=== PATIENT | female | born 1985 | race Caucasian/White ===

== ENCOUNTER → 2016-12-20 | Outpatient (CLI) | payer MEDICAID ==
[~2016-12-20] MED LIST: CEPH-443 PO; ONDA-43 PO
== END | disposition home or self-care (01) ==
LOC: PER 09:28
PROVIDERS: ATTEND Obstetrics & Gynecology
DX: O24.410 Gestational diabetes mellitus in pregnancy, diet controlled (principal); Z3A.30 30 weeks gestation of pregnancy

== ENCOUNTER 2017-02-23 08:34 | Outpatient (CLI) | payer MEDICAID ==
[~2017-02-23] VITALS: Ht 144.8 cm; Wt 67.9 kg
[2017-02-23 08:40] VITALS: Ht 144.8 cm; Wt 67.9 kg
[2017-02-23 08:41] VITALS: BP 125/70; PULSE 78; RESP 20
--- NOTE | 2017-02-23 12:10 | RADRPT ---
PROCEDURE: OB ultrasound for biophysical profile CLINICAL INDICATION: Presentation TECHNIQUE: Multiple sonographic images of the pelvis were obtained. Transabdominal views of the g ravid uterus are available for review. The images were reviewed on a PACS workstation. COMPARISON: None FINDINGS: breathing movement = 2/2 tone = 2/2 motion = 2/2 JACEY = 2/2 JACEY = 8.4 cm Single live intrauterine . position is cephalic. The placenta is anterior. IMPRESSION: 1. Single live intrauterine gestation. 2. Biophysical profile = 88. 3. JACEY = 8.4 cm. RPTAT: HH .Basia Rivera MD, MD Date Time Electronically viewed and signed by .Basia Rivera MD, on 02/23/2017 12:10 .G/
--- NOTE | 2017-02-23 16:57 | QN ---
Documentation Comment 31-year-old with IUP at 39 weeks and 1 day with history of 1 and unstable lie, she is here today for NST due to GDM A1. Past [employer] history significant for history of bicornuate uterus. She also had a history of C- section 1 due to breech presentation. Baby's presentation and current is variable and had unstable lie. Last ultrasound confirmed vertex presentation. Patient denies any leaking of fluid, vaginal bleeding, decreased movement, contractions or any other complaint. Patient reports that she has been compliant with taking her blood sugar. She shows me her blood sugar log. After review noted fasting blood sugar and postprandial in goal range. She checks fasting and 2 hour postprandial. Physical examination: General appearance: Alert and oriented 4 patient does not appear to be in any acute distress. Abdomen: Soft, gravid, nontender, Fundal height consistent with gestational age. NST: Category 1, there was a single episode of early deceleration with a variable deceleration 1 that resolved and did not recur during monitoring BPP: 05/31 PROCEDURE: OB ultrasound for biophysical profile CLINICAL INDICATION: Presentation TECHNIQUE: Multiple sonographic images of the pelvis were obtained. Transabdominal views of the gravid uterus are available for review. The images were reviewed on a PACS workstation. COMPARISON: None FINDINGS: breathing movement = 2/2 tone = 2/2 motion = 2/2 JACEY = 2/2 JACEY = 8.4 cm Single live intrauterine . position is cephalic. The placenta is anterior. IMPRESSION: 1. Single live intrauterine gestation. 2. Biophysical profile = /8. 3. JACEY = 8.4 cm. Assessment: IUP at 39 weeks and 1 day History of 1 GDM A1, well controlled History of 1 due to breech, desires T0 LAC Bicornuate uterus Baby's presentation currently vertex testing reassuring. Patient will be discharged home. Will return to anesthetic clinic in 2 days for repeat NST Strict labor precaution and kick count discussed She is currently scheduled for at 40 weeks if she does not deliver by then She verbalized understanding plan of care and all above instructions. MAGDY APPIAH MD February 23, 2017 16:57
== END 2017-02-23 12:50 | disposition home or self-care (01) ==
LOC: L-D 08:34 → OBT 08:34
PROVIDERS: ATTEND Obstetrics & Gynecology
DX: O24.410 Gestational diabetes mellitus in pregnancy, diet controlled (principal); O34.219 Maternal care for unspecified type scar from previous cesarean delivery; Z3A.39 39 weeks gestation of pregnancy
CPT/HCPCS: 76818; Z7500; G0463

== ENCOUNTER 2017-02-28 09:11 | Inpatient (IN) | payer MEDICAID ==
[~2017-02-28] VITALS: Ht 144.8 cm; Wt 67.4 kg
[2017-02-28] MEDS ORDERED: PRENAT PO (09:33)
[2017-02-28 09:34] VITALS: BP 137/86; PULSE 81; RESP 18; Ht 144.8 cm; Wt 67.4 kg
--- NOTE | 2017-02-28 10:10 | RADRPT ---
PROCEDURE: Limited OB ultrasound CLINICAL INDICATION: position TECHNIQUE: Sonographic evaluation to assess the position was performed. Transabdominal imag ing of the gravid uterus was performed. COMPARISON: No prior exam is available for comparison. FINDINGS: There is a single live intrauterine with a heart rate of 159 bpm. position is cephalic. The placenta is anterior. IMPRESSION: Cephalic presentation. RPTAT: HH .Basia Rivera MD, MD Date Time Electronically viewed and signed by .Basia Rivera MD, on 02/28/2017 10:10 .G/
[2017-02-28] MEDS ORDERED: METHYLERGONOVINE 0.2 MG INJ IM PRN ×2 (10:30→22:30)
[2017-02-28] MEDS ORDERED: CARBOPROST 250 MCG INJ IM PRN ×3 (10:30→22:30)
[2017-02-28] MEDS ORDERED: BUTORPHANOL 2 MG INJ IV PRN (10:30)
[2017-02-28] MEDS ORDERED: MISOPROSTOL 200 MCG TAB PR PRN ×2 (10:30→22:30)
[2017-02-28] MEDS ORDERED: OXYTOCIN 30 UNITS/LR 500 ML IV PRN ×2 (10:30→22:30)
[2017-02-28] MEDS ORDERED: OXYTOCIN 30 UNITS/LR 500 ML IV SCH ×2 (10:30)
[2017-02-28] MEDS ORDERED: IBUPROFEN 600 MG TAB PO PRN (10:30)
[2017-02-28] MEDS ORDERED: LACTATED RINGER'S 1,000 ML IV PRN (10:30)
[2017-02-28] MEDS ORDERED: LIDOCAINE 1% (MPF) 30 ML INJ INJ PRN (10:30)
[2017-02-28] MEDS: LACTATED RINGER'S 1,000 ML IV SCH ×3 (11:03→23:06)
[2017-02-28 11:20] LABS: ADD SCAN DIFF NO
[2017-02-28 11:23] LABS: BASOPHILS % 0.2 % (0.0-2.0); EOSINOPHILS % 0.1 % (0.0-7.0); HEMATOCRIT 37.1 % (37.0-47.0); HEMOGLOBIN 11.9 g/dl (12.0-16.0); LYMPHOCYTES # 1.9 10^3/ul (0.8-2.9); LYMPHOCYTES % 14.1 % (15.0-51.0); MEAN CORPUSCULAR HEMOGLOBIN 26.3 pg (29.0-33.0); MEAN CORPUSCULAR HGB CONC 32.1 g/dl (32.0-37.0); MEAN CORPUSCULAR VOLUME 81.9 fl (82.0-101.0); MEAN PLATELET VOLUME 11.2 fl (7.4-10.4); MONOCYTE # 0.5 10^3/ul (0.3-0.9); NEUTROPHIL # 10.7 10^3/ul (1.6-7.5); NEUTROPHILS % 81.2 % (39.0-77.0); PLATELET COUNT 221 10^3/UL (140-415); RED BLOOD COUNT 4.53 10^6/ul (4.20-5.40); RED CELL DISTRIBUTION WIDTH 14.6 % (11.5-14.5); WHITE BLOOD COUNT 13.1 10^3/ul (4.8-10.8)
[2017-02-28] MEDS ORDERED: MINERAL OIL LIGHT 10 ML VIAL TOP ONE (11:30)
[2017-02-28 11:48] LABS: INR 0.89; PT RATIO 0.9
[2017-02-28 11:49] LABS: PARTIAL THROMBOPLASTIN TIME 25.6 Sec (25.0-35.0)
[2017-02-28] MEDS ORDERED: CEFAZOLIN 2 GM/50 ML (PMX) 50 ML IV SCH ×2 (16:00→22:30)
[2017-02-28] MEDS ORDERED: morphine SULFATE/PF (10 MG/10 ML) INJ ONE (18:08)
[2017-02-28] MEDS ORDERED: OXYTOCIN 10 UNIT INJ ONE (18:08)
[2017-02-28] MEDS ORDERED: ONDANSETRON 4 MG INJ ONE (18:08)
[2017-02-28] MEDS ORDERED: PHENYLephrine (100 MCG/ML) 5ML SYG ONE (18:08)
[2017-02-28] MEDS ORDERED: FENTAnyl 50 MCG/ML VIAL ONE (18:50)
[2017-02-28] MEDS ORDERED: DIPHENHYDRAMINE 50 MG INJ ONE (19:13)
--- NOTE | 2017-02-28 19:22 | HP ---
Date/Time of Note Date/Time of Note DATE: 02/28/17 TIME: 19:15 OB - History Hx of Present Free Text/Dictation admitted at 39 + weeks C/S DROm [id number] AM with Hx of previous C/S X 1 Chief Complaint: SROM and labor pains Last Menstrual Period: May 11, 2016 Estimated Due Date: March 01, 2017 : 3 Para: 2 Care: Good Care Ultrasounds: Normal mid trimester US Obstetrical Complications: Gestational Diabetes, Other (Bicornuate uterus seen ) Medical Complications: Other (previous C/S X 1 ) Past Family/Social History * Past Medical, Surgical, Family and Obstetric Histories reviewed from chart. Blood Type: O+ Rubella: immune RPR/VDRL: Negative GBS Status: Unknown HBsAG: Negative OB Admission Exam Vital Signs Vital Signs Vital Signs Date Time Temp Pulse Resp B/P Pulse Ox O2 Delivery O2 Flow Rate FiO2 02/28/17 09:34 98.4 81 18 137/86 Room Air Physical Exam HEENT: WNL Heart: Rhythm Normal Lungs: Clear, Equal Abdomen: WNL Extremities: Normal Reflexes: Normal Cervical Dilatation: 1cm Effacement: 50% Station: -3 Membranes: Intact Heart Rate: 130's Accelerations: Accelerations Present Decelerations: Variable Decelerations Varibility: Moderate Contractions on Admission: 6-10 Minutes Apart Date/Time Contractions Began: 02/28/2017 0500 am Frequency of Contractions: Q 5-7 Duration: 30 SECONDS Intensity: Mild Last 72 hours Lab Results CBC & BMP 02/28/17 10:45 02/28/17 15:30 OB Assessment/Plan Other Assessment: TERM GESTATION PREVIOUS C/S x 1 SROM Other plan: after of variable deceleration of FHTs decision was made by the patient to have repeat C/S Patient had good awareness of nature and complications of C/S procedure including but but limited to infection and hemorrhage.and agreed to undergo C/S +. JESSIKA ELLIOTT MD February 28, 2017 19:22
--- NOTE | 2017-02-28 19:24 | OPR ---
Operative Report Planned Procedure Procedure date February 28, 2017 Procedure(s) repeat C/S Performed by: JESSIKA ELLIOTT MD Assisting provider: STAN ROBERSON MD Anesthesiologist: SONIA CARPIO MD Pre-procedure diagnosis term gestation previous C/S labor pains Anesthesia Type: spinal Procedure Description Under satisfactory anaesthesia a Pfannenstiel incision was made two fingerbreadth above and parallel to the symphysis of pubis around the previous scar and previous scar was removed Incision was extended laterally to the border of the Recti muscles on either sides. Incision was carried down with sharp and blunt dissection until fascia was reached. Anterior Recti muscle fascia was incised in mid portion and incision extended laterally to the border of skin incision. Fascia was mobilized from muscle superiorly and Recti muscles were from midline using sharp and blunt dissection. Peritoneum was visualized; Avoiding bowel and bladder it was incised . Incision was extended superiorly and inferiorly. Bladder blade was placed. Posterior peritoneum covering the lower segment of the uterus and lower segment of the uterus were incised.Low transverse uterine incision was made on lower segment of the uterus. Incision extended laterally to the border of Round Lig. on either sides and baby was delivered from OT. position . Amniotic fluid appeared clear. Cord blood was obtained and cord had 3 vessels . Placenta was delivered spontaneously and appeared intact and complete. Intrauterine cavity was rubbed with a laparotomy sponge. Uterine incision was closed in 2 layers using running stitches of No1 Monocryl. Hemostasis appeared secure. Ovaries and Fallopian tubes were within normal limits. Announcing needle, lap sponge and instrument count to be correct abdomen was closed in layers as follows: Peritoneum and Recti muscles with running stitches of 20 Vicryl. Fascia with running stitch of No 1 PDS. Subcutaneous tissue with running stitches of 20 Chromic and skin was closed using estuardo. Patient tolerated the procedure well and was transferred to [facility] in good condition. Post-Procedure Post-procedure diagnosis S/P C/S bicornuate uterus Findings: Live Baby Bicornuate uterus Specimen removed: No Complications: None Pt Condition post procedure: stable Disposition: PACU Physician Certification I, the undersigned physician, hereby certify that I have discussed the procedure described in this consent form with this patient (or the patient's legal route sales representative), including: * The risk and benefits of the procedure; * Any adverse reactions that may reasonably be expected to occur; * Any alternative efficacious methods of treatment which may be medically viable ; * The potential problems that may occur during recuperation; * Potential for blood transfusion and associated risks/benefits; and * Any research or economic interest I may have regarding this treatment. I further certify that the patient/legally responsible person was encouraged to ask question and that all questions were answered. JESSIKA ELLIOTT MD February 28, 2017 19:24
[2017-02-28] MEDS ORDERED: DIPHENHYDRAMINE 50 MG INJ IV PRN (20:30)
[2017-02-28] MEDS ORDERED: morphine 2 MG INJ IV PRN (20:30)
[2017-02-28] MEDS ORDERED: ONDANSETRON 4 MG INJ IV PRN (20:30)
[2017-02-28] MEDS ORDERED: KETOROLAC 30 MG INJ IV PRN (20:30)
[2017-02-28] MEDS ORDERED: NALOXONE (0.4 MG/ML) INJ IV PRN (20:30)
[2017-02-28 22:15] VITALS: BP 130/75; PULSE 75; RESP 18
[2017-02-28] MEDS ORDERED: ACETAMINOPHEN/CODEINE #3 TAB PO PRN (22:30)
[2017-02-28] MEDS ORDERED: LANOLIN 7 GM TUBE TOP PRN (22:30)
[2017-02-28] MEDS ORDERED: NA PHOSPHATE/BIPHOS 133 ML ENEMA PR PRN (22:30)
[2017-02-28 22:45] VITALS: BP 124/66; PULSE 75; RESP 18
[2017-02-28] MEDS ORDERED: DEXTROSE 50% 50 ML SYRINGE IV PRN ×2 (23:00)
[2017-02-28] MEDS ORDERED: GLUCOSE GEL 15 GRAM TUBE BUCCAL PRN (23:00)
[2017-02-28] MEDS ORDERED: GLUCOSE GEL 15 GRAM TUBE PO PRN ×2 (23:00)
[2017-02-28] MEDS ORDERED: GLUCAGON 1 MG INJ IM PRN (23:00)
[2017-03-01] VITALS: BP 121/70; PULSE 70; RESP 18
[2017-03-01] MEDS: CLINDAMYCIN 300 MG CAP PO SCH ×4 (00:21→18:13)
[2017-03-01] MEDS: CEFAZOLIN 2 GM/50 ML (PMX) 50 ML IVPB SCH ×3 (02:06→18:11)
[2017-03-01 04:03] VITALS: BP 114/63; PULSE 81; RESP 18
[2017-03-01] MEDS: LACTATED RINGER'S 1,000 ML IV SCH ×3 (06:48→15:07)
[2017-03-01] MEDS: ACCU-CHEK XX SCH ×4 (07:29→20:05)
[2017-03-01] MEDS: metFORMIN (XR) 500 MG TAB PO SCH ×2 (07:46→18:05)
[2017-03-01 08:00] VITALS: BP 116/62; PULSE 88; RESP 16
[2017-03-01 08:28] LABS: ADD SCAN DIFF NO
[2017-03-01 08:53] LABS: BASOPHILS % 0.3 % (0.0-2.0); EOSINOPHILS % 0.2 % (0.0-7.0); HEMATOCRIT 33.2 % (37.0-47.0); HEMOGLOBIN 10.3 g/dl (12.0-16.0); LYMPHOCYTES # 1.4 10^3/ul (0.8-2.9); LYMPHOCYTES % 12.1 % (15.0-51.0); MEAN CORPUSCULAR HEMOGLOBIN 25.9 pg (29.0-33.0); MEAN CORPUSCULAR VOLUME 83.6 fl (82.0-101.0); MEAN PLATELET VOLUME 11.4 fl (7.4-10.4); MONOCYTE # 0.6 10^3/ul (0.3-0.9); MONOCYTES % 4.7 % (0.0-11.0); NEUTROPHIL # 9.8 10^3/ul (1.6-7.5); NEUTROPHILS % 82.3 % (39.0-77.0); PLATELET COUNT 186 10^3/UL (140-415); RED BLOOD COUNT 3.97 10^6/ul (4.20-5.40); RED CELL DISTRIBUTION WIDTH 14.6 % (11.5-14.5); WHITE BLOOD COUNT 11.9 10^3/ul (4.8-10.8)
[2017-03-01] MEDS: SENNA/DOCUSATE NA (8.6MG/50MG) TAB PO SCH ×2 (09:05→20:31)
[2017-03-01] MEDS ORDERED: BISACODYL 10 MG SUPP PR ONE (10:30)
[2017-03-01 12:00] VITALS: BP 110/64; PULSE 67; RESP 16
--- NOTE | 2017-03-01 14:59 | PN ---
Date/Time of Note Date/Time of Note DATE: 03/01/17 TIME: 14:58 Assessment/Plan VTE Prophylaxis VTE Prophylaxis Intervention: ambulation Lines/Catheters IV Catheter Type (from Nrsg): Peripheral IV Assessment/Plan Assessment/Plan POD # 1 S/P C/S Will advance diet and ambulate Subjective 24 Hr Interval Summary No BM passing flatus Constitutional: BM, ambulates, flatus, improved, no complaints, urine output Pain Control: well controlled Exam/Review of Systems Vital Signs Vitals Vital Signs Date Time Temp Pulse Resp B/P Pulse Ox O2 Delivery O2 Flow Rate FiO2 03/01/17 12:00 97 21 03/01/17 12:00 98.4 67 16 110/64 Room Air Intake and Output 02/28/17 02/28/17 03/01/17 15:00 23:00 07:00 Intake Total 325 ml 1075 ml 1025 ml Output Total 350 ml 1200 ml 900 ml Balance -25 ml -125 ml 125 ml Exam Free Text/Dictation Abdomen: soft BS + incision : covered Constitutional: alert, oriented, well developed Psych: nl mood/affect, no complaints Head: atraumatic, normocephalic Eyes: EOMI, nl conjunctiva, nl lids, nl sclera ENMT: mucosa pink and moist, nl external ears & nose, nl lips & teeth, nl nasal mucosa & septum Neck: non-tender, supple Respiratory: clear to auscultation, normal air movement Cardiovascular: nl pulses, regular rate and rhythm Gastrointestinal: nl liver, spleen, non-tender, soft Musculoskeletal: nl extremities to inspection, nl gait and stance Extremities: normal pulses Neurological: RELIGIOUS LEADER II-XII intact, nl mental status, nl speech, nl strength Skin: nl turgor, rash or lesions Lymph: nl lymph nodes Results Result Diagram: 03/01/17 0727 02/28/17 1530 JESSIKA ELLIOTT MD March 01, 2017 14:59
[2017-03-01 16:00] VITALS: BP 113/63; PULSE 78; RESP 16
[2017-03-01 20:30] VITALS: BP 129/64; PULSE 90; RESP 18
[2017-03-01] MEDS: OXYCODONE/ACETAMINOPHEN (5/325) TAB PO PRN (20:32)
[2017-03-02] MEDS: IBUPROFEN 800 MG TAB PO SCH ×4 (00:40→21:16)
[2017-03-02] MEDS: CLINDAMYCIN 300 MG CAP PO SCH ×4 (00:41→17:13)
[2017-03-02 04:00] VITALS: BP 115/66; PULSE 71; RESP 18
[2017-03-02] MEDS: LACTATED RINGER'S 1,000 ML IV SCH (06:23)
[2017-03-02] MEDS: metFORMIN (XR) 500 MG TAB PO SCH ×2 (07:28→16:44)
[2017-03-02] MEDS: ACCU-CHEK XX SCH ×4 (07:30→20:05)
[2017-03-02 07:40] VITALS: BP 115/73; PULSE 61; RESP 16
[2017-03-02 08:02] LABS: ADD SCAN DIFF NO
[2017-03-02 08:05] LABS: BASOPHILS % 0.2 % (0.0-2.0); EOSINOPHILS % 0.3 % (0.0-7.0); HEMATOCRIT 30.1 % (37.0-47.0); HEMOGLOBIN 9.3 g/dl (12.0-16.0); LYMPHOCYTES # 1.7 10^3/ul (0.8-2.9); LYMPHOCYTES % 14.5 % (15.0-51.0); MEAN CORPUSCULAR HEMOGLOBIN 26.2 pg (29.0-33.0); MEAN CORPUSCULAR HGB CONC 30.9 g/dl (32.0-37.0); MEAN CORPUSCULAR VOLUME 84.8 fl (82.0-101.0); MEAN PLATELET VOLUME 11.2 fl (7.4-10.4); MONOCYTE # 0.7 10^3/ul (0.3-0.9); MONOCYTES % 5.8 % (0.0-11.0); NEUTROPHIL # 9.3 10^3/ul (1.6-7.5); NEUTROPHILS % 78.9 % (39.0-77.0); PLATELET COUNT 182 10^3/UL (140-415); RED BLOOD COUNT 3.55 10^6/ul (4.20-5.40); WHITE BLOOD COUNT 11.8 10^3/ul (4.8-10.8)
[2017-03-02] MEDS: SENNA/DOCUSATE NA (8.6MG/50MG) TAB PO SCH ×2 (09:05→21:16)
[2017-03-02] MEDS: OXYCODONE/ACETAMINOPHEN (5/325) TAB PO PRN ×2 (14:50→22:19)
[2017-03-02 16:00] VITALS: BP 127/80; PULSE 70; RESP 16
--- NOTE | 2017-03-02 17:52 | DS ---
Date/Time of Note Date/Time of Note home next day DATE: 03/02/17 TIME: 17:49 Obstetrical Discharge Record Final Diagnosis Final Diagnosis: Term delivered Other Final Diagnosis S/P C/S Section Section: Repeat Complications Gestational Diabetes Condition on Discharge Physical Assessment Last Vitals: see nurses notes Voiding: Yes Bowel Movement: Yes Breast: Soft, non-tender, Filling Fundus: Firm Abdomen and Incision: soft BS+ INCISION : HEALING Episiotomy: NA Calf Tenderness: No Patient Condition: Good JESSIKA ELLIOTT MD March 02, 2017 17:52
--- NOTE | 2017-03-02 17:54 | DS ---
Date/Time of Note Date/Time of Note DATE: 03/02/17 TIME: 17:52 Discharge Summary Admission/Discharge Info Admit Date/Time February 28, 2017 at 10:49 Discharge Date/Time 03/03/2017 Final Diagnosis S/P C/S Patient Condition: Good Procedures repeat C/S Hx of Present Illness 31 y/o female had repeat C/S Hospital Course Uncomplicated Home Meds Reported Medications Multivit/Min/Fol Ac/Iron/Pren* ( S*) 1 Tab Tab, 1 TAB PO DAILY, TAB 02/28/17 Discontinued Scripts Cephalexin* (Keflex*) 500 Mg Capsule, 500 MG PO QID for 7 Days, CAP Prov:MICHELLE LIMON PA-C 07/12/16 Ondansetron Hcl* (Zofran*) 4 Mg Tab, 4 MG PO Q6H Y for NAUSEA AND OR VOMITING, # 20 TAB Prov:EDGARDO FENTON 05/03/15 Follow-up Plan 3-4 days in clinic for staple removal Pending Labs Laboratory Tests Test 03/01/17 20:13 03/02/17 07:15 03/02/17 08:39 03/02/17 11:36 Bedside Glucose 117mg/dL (70-220) 76mg/dL (70-220) 112mg/dL (70-220) White Blood Count 11.810^3/ul (4.8-10.8) Red Blood Count 3.5510^6/ul (4.20-5.40) Hemoglobin 9.3g/dl (12.0-16.0) Hematocrit 30.1% (37.0-47.0) Mean Corpuscular Volume 84.8fl (82.0-101.0) Mean Corpuscular Hemoglobin 26.2pg (29.0-33.0) Mean Corpuscular Hemoglobin Concent 30.9g/dl (32.0-37.0) Red Cell Distribution Width 15.0% (11.5-14.5) Platelet Count 47249^3/UL (140-415) Mean Platelet Volume 11.2fl (7.4-10.4) Neutrophils % 78.9% (39.0-77.0) Lymphocytes % 14.5% (15.0-51.0) Monocytes % 5.8% (0.0-11.0) Eosinophils % 0.3% (0.0-7.0) Basophils % 0.2% (0.0-2.0) Nucleated Red Blood Cells % 0.0/100WBC (0.0-0.0) Neutrophils # 9.310^3/ul (1.6-7.5) Lymphocytes # 1.710^3/ul (0.8-2.9) Monocytes # 0.710^3/ul (0.3-0.9) Eosinophils # 0.010^3/ul (0.0-0.5) Basophils # 0.010^3/ul (0.0-0.1) Nucleated Red Blood Cells # 0.010^3/ul (0.0-0.0) Test 03/02/17 15:58 Bedside Glucose 105mg/dL (70-220) JESSIKA ELLIOTT MD March 02, 2017 17:54
--- NOTE | 2017-03-02 17:56 | PD.PPDC ---
TIME RECORDER Discharge Instruction Provider Information Physician Information 31 y/o female had repeat C/S Diagnosis Final Diagnosis: S/P C/S Condition Patient Condition: Good Diet Diet: Special Diet Special Diet: 1999 ruddy ADA Activity/Restrictions Activity: February Shower Restrictions: No Exercising No Lifting Nothing in the Vagina Return to Work or School: May 02, 2017 Wound/Drain Care Instructions Wound/Drain Care Instructions: Keep clean and dry Follow-up Follow-up with Physician: 3, 4, Day/Days (in clinic for staple removal ) Return to clinic for CREDIT ADMINISTRATION OFFICER Instructions: Fever greater than 101 Chills OB Instructions: Breast Tenderness Depression Surgical Instructions: Incisional Drainage Incisional Redness JESSIKA ELLIOTT MD March 02, 2017 17:56
[2017-03-02] MEDS ORDERED: Oxycodone/Acetamin (5/325) PO (17:58)
[2017-03-02] MEDS ORDERED: METF500T3 PO (17:58)
[2017-03-02] MEDS ORDERED: IBUP800T25 PO (17:58)
[2017-03-02 19:50] VITALS: BP 135/77; PULSE 80; RESP 17
[2017-03-03] MEDS: CLINDAMYCIN 300 MG CAP PO SCH ×3 (00:06→12:00)
[2017-03-03 04:00] VITALS: BP 116/56; PULSE 68; RESP 18
[2017-03-03] MEDS: IBUPROFEN 800 MG TAB PO SCH (05:32)
[2017-03-03] MEDS: ACCU-CHEK XX SCH ×2 (07:30→10:05)
[2017-03-03 07:50] VITALS: BP 118/56; PULSE 65; RESP 20
[2017-03-03] MEDS: metFORMIN (XR) 500 MG TAB PO SCH (08:05)
[2017-03-03] MEDS: SENNA/DOCUSATE NA (8.6MG/50MG) TAB PO SCH (08:44)
[2017-03-03] MEDS ORDERED: DIPHTH/TET/ACEL PERTUSS (ADULT) 0.5 ML VIAL IM* ONE (09:00)
[2017-03-03] MEDS ORDERED: MEASLES,MUMPS,RUBELLA VACCINE INJ SC* ONE (09:00)
[2017-03-03] MEDS: OXYCODONE/ACETAMINOPHEN (5/325) TAB PO PRN (09:07)
== END 2017-03-03 14:00 | disposition home or self-care (01) | DRG 766 ==
LOC: OBT 09:11 → L-D 09:12 → OBT 10:43 → L-D 10:49 → PP1 22:12
PROVIDERS: ADMIT Obstetrics & Gynecology; ATTEND Obstetrics & Gynecology
PROC: 10D00Z1 Extraction of Products of Conception, Low, Open Approach (ICD-10-PCS; principal; 2017-02-28 18:00)
DX: O34.211 Maternal care for low transverse scar from previous cesarean delivery (principal); O24.420 Gestational diabetes mellitus in childbirth, diet controlled; O34.03 Maternal care for unspecified congenital malformation of uterus, third trimester; Q51.3 Bicornate uterus; O76 Abnormality in fetal heart rate and rhythm complicating labor and delivery; Z3A.39 39 weeks gestation of pregnancy; Z37.0 Single live birth
CPT/HCPCS: 76815; 82947; 82962; 84112; 85025; 85610; 85730; 86592; 86885; 86900; 86901; 90715; 94760; 99464; G0463; J0690; J1200; J1885; J2274; J2370; J2405; J2590; J3010; J7120

== ENCOUNTER 2017-06-07 15:33 | Emergency (ER) | payer MEDICAID ==
[~2017-06-07] VITALS: Ht 152.4 cm; Wt 64.0 kg
[~2017-06-07 15:33] MED LIST changes: -CEPH-443 PO; +IBUP800T25 PO; +METF500T3 PO; -ONDA-43 PO; +Oxycodone/Acetamin (5/325) PO; +PRENAT PO
[2017-06-07 15:45] VITALS: Ht 152.4 cm; Wt 64.0 kg
[2017-06-07] MEDS ORDERED: SOD CHLORIDE 0.9% 1,000 ML IV STA (16:14)
[2017-06-07] MEDS ORDERED: KETOROLAC 30 MG INJ IV STA (16:14)
[2017-06-07] MEDS ORDERED: METOCLOPRAMIDE 10 MG INJ IV ONE (16:30)
[2017-06-07 16:49] LABS: BASOPHILS % 0.1 % (0.0-2.0); EOSINOPHILS % 0.2 % (0.0-7.0); HEMATOCRIT 40.2 % (37.0-47.0); HEMOGLOBIN 13.2 g/dl (12.0-16.0); LYMPHOCYTES # 1.4 10^3/ul (0.8-2.9); LYMPHOCYTES % 10.7 % (15.0-51.0); MEAN CORPUSCULAR HEMOGLOBIN 27.3 pg (29.0-33.0); MEAN CORPUSCULAR HGB CONC 32.8 g/dl (32.0-37.0); MEAN CORPUSCULAR VOLUME 83.1 fl (82.0-101.0); MEAN PLATELET VOLUME 9.9 fl (7.4-10.4); MONOCYTE # 0.7 10^3/ul (0.3-0.9); MONOCYTES % 5.2 % (0.0-11.0); NEUTROPHILS % 83.5 % (39.0-77.0); PLATELET COUNT 247 10^3/UL (140-415); RED BLOOD COUNT 4.84 10^6/ul (4.20-5.40); RED CELL DISTRIBUTION WIDTH 14.7 % (11.5-14.5); WHITE BLOOD COUNT 13.5 10^3/ul (4.8-10.8)
--- NOTE | 2017-06-07 17:09 | RADRPT ---
PROCEDURE: Right upper quadrant ultrasound CLINICAL INDICATION: Abdominal pain TECHNIQUE: Multiple real-time images were acquired of the patient's abdomen and right retroperiton eum utilizing a high resolution transducer. COMPARISON: None FINDINGS: The liver is normal in echogenicity and measures 13.03 cm. No focal hepatic masses are seen. The g allbladder is physiologically distended. There is no evidence of gallstones, gallbladder wall thick ening, or pericholecystic fluid. The intra and extrahepatic bile ducts are normal in caliber. The common bile duct measures 2.32 mm. Midline images demonstrate the pancreas to be normal in echogenicity without obvious inflammatory ch keagan. Survey views of the right kidney demonstrate no evidence of hydronephrosis or renal calculi. The ri ght kidney measures 9.79 cm. IMPRESSION: Unremarkable right upper quadrant ultrasound. No evidence of cholelithiasis or acute cholecystitis. . RPTAT: HH .Leonel Marcos MD, Date Time Electronically viewed and signed by .Leonel Marcos MD, on 06/07/2017 17:09 .W/
[2017-06-07 17:19] LABS: ALBUMIN 4.7 g/dl (3.3-4.9); ALBUMIN/GLOBULIN RATIO 1.38; BILIRUBIN,INDIRECT 0.4 mg/dl (0-1.1); BILIRUBIN,TOTAL 0.4 mg/dl (0.2-1.3); CALCIUM 9.2 mg/dl (8.4-10.2); CREATININE 0.56 mg/dl (0.44-1.00); POTASSIUM 3.3 mmol/L (3.5-5.1); TOTAL PROTEIN 8.1 g/dl (6.1-8.1)
[2017-06-07 17:19] LABS: ADD UMIC YES; UR ASCORBIC ACID NEGATIVE (NEGATIVE); UR BACTERIA FEW /HPF (NONE SEEN); UR BILIRUBIN (Dip) NEGATIVE (NEGATIVE); UR BLOOD (Dip) 3+ mg/dL (NEGATIVE); UR CLARITY CLOUDY (CLEAR); UR COLOR YELLOW (YELLOW); UR GLUCOSE (Dip) NEGATIVE (NEGATIVE); UR KETONES (Dip) NEGATIVE (NEGATIVE); UR LEUKOCYTE ESTERASE (Dip) 3+ Leu/ul (NEGATIVE); UR NITRITE (Dip) NEGATIVE (NEGATIVE); UR RBC 33 /HPF (0-5); UR RENAL EPITHELIAL CELL FEW /HPF (NONE SEEN); UR SPECIFIC GRAVITY (Dip) 1.005 (1.003-1.030); UR SQUAMOUS EPITHELIAL CELL MODERATE /HPF (FEW); UR TOTAL PROTEIN (Dip) NEGATIVE (NEGATIVE); UR UROBILINOGEN (Dip) NEGATIVE (NEGATIVE); UR WBC CLUMPS MANY /HPF (NONE SEEN)
[2017-06-07] MEDS ORDERED: CEPH-443 PO (17:50)
[2017-06-07] MEDS ORDERED: IBUP-1542 PO (17:50)
--- NOTE | 2017-06-07 17:58 | ERD ---
ER Documentation Chief Complaint Date/Time DATE: 06/07/17 TIME: 17:51 Chief Complaint pt bib self with c/o abd pain and nausea for a few days 3 months post partu HPI Patient is a 31-year-old female with a past medical history of an appendectomy who presents to the emergency department with concerns of diffuse abdominal pain nausea 3 days. Patient describes the pain to be episodic in nature. Patient describes the pain to be crampy. Patient states she started having diarrhea today. Patient reports 4 episodes of nonbloody nonmucous stools today. Patient states she feels nauseous however she denies any vomiting. Patient reports tactile fevers. Patient did not take her temperature with a thermometer. Patient denies taking any antipyretics. Patient denies any flank pain, dysuria, frequency, urgency or hematuria. Patient denies any chest pain, shortness breath, left upper extremity pain, diaphoresis or LOC. Patient did recently travel to [facility]. No sick contacts. No recent travel. ROS All systems reviewed and are negative except as per history of present illness. Medications Home Meds Active Scripts Nitrofurantoin Monohyd Macrocr* (Macrobid*) 100 Mg Capsr, 100 MG PO HS for 5 Days, CAP Prov:INÉS TIJERINA 06/08/17 Loperamide Hcl* (Imodium*) 2 Mg Capsule, 2 MG PO BID Y for DIARRHEA, #10 CAP MAX 16 mg/day Prov:INÉS TIJERINA 06/08/17 Metoclopramide* (Reglan*) 10 Mg Tablet, 10 MG PO Q6 Y for NAUSEA AND/OR VOMITING , #10 TAB Prov:LILIA JANG PA-C 06/07/17 Cephalexin* (Keflex*) 500 Mg Capsule, 500 MG PO TID for 7 Days, CAP Prov:LILIA JANG PA-C 06/07/17 Ibuprofen* (Motrin*) 600 Mg Tab, 600 MG PO Q6, #30 TAB Prov:LILIA JANG PA-C 06/07/17 [Oxycodone/Acetamin (5/325)] 1 TAB TAB No Conflict Check, 2 TAB PO Q4H Y for PAIN LEVEL 6-10, #30 0 Refills Prov:JESSIKA ELLIOTT MD 03/02/17 Ibuprofen* (Ibuprofen*) 800 Mg Tablet, 800 MG PO Q8, #30 TAB 0 Refills Prov:JESSIKA ELLIOTT MD 03/02/17 Metformin* (Glucophage* XR) 500 Mg Tab.sr.24h, 500 MG PO BID WITH MEALS, #120 6 Refills Prov:JESSIKA ELLIOTT MD 03/02/17 Reported Medications Multivit/Min/Fol Ac/Iron/Pren* ( S*) 1 Tab Tab, 1 TAB PO DAILY, TAB 02/28/17 Allergies Allergies: Coded Allergies: No Known Drug Allergy (Verified Allergy, Unknown, 06/08/17) PMhx/Soc History of Surgery: Yes (appendectomy) Anesthesia Reaction: No Hx Neurological Disorder: No Hx Respiratory Disorders: No Hx Cardiac Disorders: No Hx Psychiatric Problems: No Hx Miscellaneous Medical Probl: No Hx Alcohol Use: No Hx Substance Use: No Hx Tobacco Use: No Smoking Status: Never smoker Physical Exam Vitals Vital Signs Date Time Temp Pulse Resp B/P Pulse Ox O2 Delivery O2 Flow Rate FiO2 06/07/17 15:45 100.4 122 18 124/74 99 Physical Exam GENERAL: Well-developed, well-nourished female. Appears in no acute distress. HEAD: Normocephalic, atraumatic. EYES: Pupils are equally reactive bilaterally. EOMs grossly intact. No conjunctival erythema. ENT: Moist mucous membranes. No uvula deviation. No kissing tonsils. NECK: Supple. No meningismus. Normal range of motion of the neck. LUNG: Clear to auscultation bilaterally. No rhonchi, wheezing, rales or coarse breath sounds. HEART: Regular rate and rhythm. No murmurs, rubs or gallops. ABDOMEN: Soft and nondistended. Minimally tender to palpation in all 4 quadrants. Positive bowel sounds in all four quadrants. No rebound tenderness, no guarding. (-) McBurney's point tenderness. No CVA tenderness bilaterally. EXTREMITIES: Equal pulses bilaterally. No peripheral clubbing, cyanosis or edema. No unilateral leg swelling. NEUROLOGIC: Alert and oriented. Moving all four extremities without any difficulty. Normal speech. Steady gait. SKIN: Normal color. Warm and dry. No rashes or lesions. Result Diagram: 06/07/17 1628 06/07/17 1628 Results 24 hrs Laboratory Tests Test 06/07/17 16:18 06/07/17 16:28 Urine Color YELLOW Urine Clarity CLOUDY Urine pH 5.0 Urine Specific [place] 1.005 Urine Ketones NEGATIVEmg/dL Urine Nitrite NEGATIVEmg/dL Urine Bilirubin NEGATIVEmg/dL Urine Urobilinogen NEGATIVEmg/dL Urine Leukocyte Esterase 3+Kyler/ul Urine Microscopic RBC 33/HPF Urine Microscopic WBC 85/HPF Urine Squamous Epithelial Cells MODERATE/HPF Urine Renal Epithelial Cells FEW/HPF Urine Bacteria FEW/HPF Urine Hemoglobin 3+mg/dL Urine Glucose NEGATIVEmg/dL Urine Total Protein NEGATIVEmg/dl White Blood Count 13.510^3/ul Red Blood Count 4.8410^6/ul Hemoglobin 13.2g/dl Hematocrit 40.2% Mean Corpuscular Volume 83.1fl Mean Corpuscular Hemoglobin 27.3pg Mean Corpuscular Hemoglobin Concent 32.8g/dl Red Cell Distribution Width 14.7% Platelet Count 85780^3/UL Mean Platelet Volume 9.9fl Neutrophils % 83.5% Lymphocytes % 10.7% Monocytes % 5.2% Eosinophils % 0.2% Basophils % 0.1% Nucleated Red Blood Cells % 0.0/100WBC Neutrophils # (Manual) 11.210^3/ul Lymphocytes # 1.410^3/ul Monocytes # 0.710^3/ul Eosinophils # 0.010^3/ul Basophils # 0.010^3/ul Nucleated Red Blood Cells # 0.010^3/ul Sodium Level 138mmol/L Potassium Level 3.3mmol/L Chloride Level 103mmol/L Carbon Dioxide Level 24mmol/L Anion Gap 14 Blood Urea Nitrogen 12mg/dl Creatinine 0.56mg/dl Glucose Level 92mg/dl Calcium Level 9.2mg/dl Total Bilirubin 0.4mg/dl Direct Bilirubin 0.00mg/dl Indirect Bilirubin 0.4mg/dl Aspartate Amino Transf (AST/SGOT) 33IU/L Alanine Aminotransferase (ALT/SGPT) 57IU/L Alkaline Phosphatase 121IU/L Total Protein 8.1g/dl Albumin 4.7g/dl Globulin 3.40g/dl Albumin/Globulin Ratio 1.38 Lipase 107U/L Current Medications Medications (Trade) Dose Ordered Sig/Josephine Route PRN Reason Start Time Stop Time Status Last Admin Dose Admin Sodium Chloride (NS) 1,000 ml @ 1,000 mls/hr Q1H STAT IV 06/07/17 16:14 06/07/17 17:13 DC 06/07/17 16:59 Ketorolac Tromethamine (Toradol) 30 mg ONCE STAT IV 06/07/17 16:14 06/07/17 16:17 DC 06/07/17 17:06 Metoclopramide HCl 10 mg 10 mg ONCE ONCE IV 06/07/17 16:30 06/07/17 16:31 DC 06/07/17 17:04 Ceftriaxone Sodium (Rocephin) 50 ml @ 100 mls/hr ONCE ONCE IVPB 06/07/17 18:00 06/07/17 18:29 DC 06/07/17 17:56 Procedures/MDM ED COURSE: The patient was stable throughout ED course. I kept the patient and/or family informed of laboratory and diagnostic imaging results throughout the ED course. DIAGNOSTIC IMAGING: Read by radiologist. Patient: ENRIQUE RUBIN : 1985 Age: 31 Sex: F MR #: [id number] DOS: 06/07/17 0000 Ordering MD: LILIA JANG PA-C Location: [facility] Room/Bed: PROCEDURE: Right upper quadrant ultrasound CLINICAL INDICATION: Abdominal pain TECHNIQUE: Multiple real-time images were acquired of the patient's abdomen and right retroperitoneum utilizing a high resolution transducer. COMPARISON: None FINDINGS: The liver is normal in echogenicity and measures 13.03 cm. No focal hepatic masses are seen. The gallbladder is physiologically distended. There is no evidence of gallstones, gallbladder wall thickening, or pericholecystic fluid. The intra and extrahepatic bile ducts are normal in caliber. The common bile duct measures 2.32 mm. Midline images demonstrate the pancreas to be normal in echogenicity without obvious inflammatory change. Survey views of the right kidney demonstrate no evidence of hydronephrosis or renal calculi. The right kidney measures 9.79 cm. IMPRESSION: Unremarkable right upper quadrant ultrasound. No evidence of cholelithiasis or acute cholecystitis.. RPTAT: HH .Leonel Marcos MD, MD Date Time Electronically viewed and signed by .Leonel Marcos MD, MD on 06/07/2017 17:09 .W/ CC: LILIA JANG PA-C PROCEDURES: None. MEDICATIONS GIVEN: IV fluids, Toradol, Zofran, Rocephin 1 g Patient tolerated medication well with no adverse reactions. Patient reported improvement in pain. MEDICAL DECISION MAKING: This is a 31-year-old female with past medical history of an appendectomy presents emergency department for complaints of diffuse abdominal pain, nausea, and diarrhea. Vital signs were reviewed. Patient was febrile at initial presentation with a temperature 100.4F. Patient's pulse was noted to be 122. She was given Toradol here in the emergency department. Patient's vitals were improved prior to discharge. Patient was no longer afebrile and was no longer tachycardic. Abdominal exam revealed diffuse tenderness in all 4 quadrants. Patient had no peritoneal signs. Patient no guarding or rebound. CBC did show an elevated white count of 13.5. No evidence of severe anemia. Patient's potassium was noted to be 3.3. Patient was advised to increase potassium intake over the next 2 days and eat two bananas per day. CBC showed no other electrolyte abnormalities, severe acidosis, alkalosis, renal failure liver disease. The patient no evidence of acute pancreatitis. Urinalysis did show 3 + leukocyte esterase, 85 WBCs, 3+ hemoglobin. test was negative. Right upper quadrant ultrasound was unremarkable. Patient was given Rocephin IV here in the emergency department. Patient will be discharged home with prescription for Keflex. At this time patient's presentation is most consistent with diffuse abdominal pain, diarrhea and UTI. Low suspicion for AAA , bowel obstruction, DKA, bowel perforation, cholelithiasis, cholecystitis, choledocholithiasis, pancreatitis, nephrolithiasis, appendicitis, constipation, , ectopic , PID, ovarian torsion or tubo-ovarian abscess. I doubt sepsis at this time. Patient was non-toxic, non-ill appearing prior to discharge. PRESCRIPTIONS: Ibuprofen, Zofran, Keflex DISCHARGE: At this time, patient is stable for discharge and outpatient management. She was given a copy of all imaging studies and blood work obtained today. I have instructed the patient to follow-up with his/her primary care physician in 1-2 days. I have instructed the patient to promptly return to the ER at any time for any new or worsening symptoms including increased pain, nausea, vomiting, diarrhea, fever, weakness or LOC. The patient and/or family expressed understanding of and agreement with this plan. All questions were answered. Home care instructions were provided. Disclaimer: Inadvertent spelling and grammatical errors are likely due to EHR/ dictation software use and do not reflect on the overall quality of patient care. Also, please note that the electronic time recorded on this note does not necessarily reflect the actual time of the patient encounter. Departure Diagnosis: Primary Impression: UTI (urinary tract infection) Urinary tract infection type: site unspecified Hematuria presence: with hematuria Qualified Code: N39.0 - Urinary tract infection with hematuria, site unspecified Additional Impressions: Diarrhea Diarrhea type: unspecified type Qualified Code: R19.7 - Diarrhea, unspecified type Abdominal pain Abdominal location: unspecified location Qualified Code: R10.9 - Abdominal pain, unspecified location Condition: Stable Patient Instructions: Treating Diarrhea, Understanding Urinary Tract Infections (UTIs) Additional Instructions: Call your primary care doctor TOMORROW for an appointment during the next 1-2 days.See the doctor sooner or return here if your condition worsens before your appointment time. Drink plenty of fluids. Take medication as needed. Fever control advised. LILIA JANG PA-C Jun 07, 2017 17:58
[2017-06-07] MEDS ORDERED: METO10TA92 PO (17:59)
[2017-06-07] MEDS ORDERED: CEFTRIAXONE 1 GM/50 ML (PMX) 50 ML IVPB ONE (18:00)
[2017-06-08] MEDS ORDERED: LOPE2CAP PO (09:09)
[2017-06-08] MEDS ORDERED: NITR-58 PO (09:11)
== END 2017-06-07 19:12 | disposition home or self-care (01) ==
LOC: FTE 15:33
DX: N39.0 Urinary tract infection, site not specified (principal); R19.7 Diarrhea, unspecified; R11.0 Nausea
CPT/HCPCS: 36415; 76705; 80053; 81001; 83690; 85025; 96374; 96375; J0696; J1885; J2765; J7030; Z7502

== ENCOUNTER 2017-06-08 06:59 | Emergency (ER) | END 2017-06-08 09:26 | disposition home or self-care (01) | DX: N39.0 Urinary tract infection, site not specified (principal); K52.9 Noninfective gastroenteritis and colitis, unspecified; R11.0 Nausea; Z79.84 Long term (current) use of oral hypoglycemic drugs | CPT/HCPCS: 36415; 80053; 81001; 83690; 85025; 96374; J2405; J7030; Z7502 ==

== ENCOUNTER 2017-06-09 21:52 | Emergency (ER) | payer MEDICAID ==
[~2017-06-09] VITALS: Ht 160 cm; Wt 55.5 kg
[~2017-06-09 21:52] MED LIST changes: +AMO500 PO; +CEPH-443 PO; +CHINESE HERBS; +IBUP-1542 PO; +LOPE2CAP PO; +METO10TA92 PO; +NITR-58 PO; +ONDA-43 PO; +PREN1TAB49 PO; +[UNRECOGNIZED DRUG - REMARK]
[2017-06-09 21:58] VITALS: Ht 160 cm; Wt 55.5 kg
--- NOTE | 2017-06-09 22:30 | ERD ---
ER Documentation Chief Complaint Date/Time DATE: 06/09/17 TIME: 22:21 Chief Complaint pelvic pain, diarrhea, fever HPI 31-year-old female presents emergency department for pelvic pain, diarrhea, fever. Stated that she was here last Tuesday and was discharged with a final diagnosis of UTI. Complaints of abdominal pain that started last night. Had a 3 months ago. Denies headache, loss of consciousness, dizziness, blurry vision, changes in vision, photophobia, facial pain, ear pain, throat pain, difficulty swallowing, neck pain, shoulder pain, chest pain, cough, hemoptysis, back pain, loss of appetite, nausea, vomiting, hematochezia, diarrhea, constipation, , the possibility of being , bladder and bowel incontinences, extremity weakness, extremity tenderness, numbness or tingling sensation, difficulty walking, recent travel, recent exposure to illness. LMP: Patient stated that she does not have a menstrual period this time. Still breast-feeding. A0. No known drug allergies. No past medical history. Surgical history: Appendectomy. Medication: Denies. Social: Not working at this time. Denies smoking, use of alcohol, use of illegal drugs. ROS All systems reviewed and are negative except as per history of present illness. Medications Home Meds Active Scripts Acetaminophen* (Tylophen*) 500 Mg Capsule, 1 CAP PO Q6H Y for PAIN AND OR ELEVATED TEMP, #20 CAP Prov:RYAN ALLEN 06/10/17 Amoxicillin/Potassium Clav (Amox-Clav 875-125 mg Tablet) 875-125 mg Tab, 1 TAB PO BID for 10 Days, #20 TAB Prov:CHAYAKRISTOPHEREMMADK Lenz 06/10/17 Nitrofurantoin Monohyd Macrocr* (Macrobid*) 100 Mg Capsr, 100 MG PO HS for 5 Days, CAP Prov:INÉS TIJERINA DO 06/08/17 Loperamide Hcl* (Imodium*) 2 Mg Capsule, 2 MG PO BID Y for DIARRHEA, #10 CAP MAX 16 mg/day Prov:INÉS TIJERINA DO 06/08/17 Metoclopramide* (Reglan*) 10 Mg Tablet, 10 MG PO Q6 Y for NAUSEA AND/OR VOMITING , #10 TAB Prov:LILIA JANG PA-C 06/07/17 Cephalexin* (Keflex*) 500 Mg Capsule, 500 MG PO TID for 7 Days, CAP Prov:LILIA JANG PA-C 06/07/17 Ibuprofen* (Motrin*) 600 Mg Tab, 600 MG PO Q6, #30 TAB Prov:LILIA JANG PA-C 06/07/17 [Oxycodone/Acetamin (5/325)] 1 TAB TAB No Conflict Check, 2 TAB PO Q4H Y for PAIN LEVEL 6-10, #30 0 Refills Prov:JESSIKA ELLIOTT MD 03/02/17 Ibuprofen* (Ibuprofen*) 800 Mg Tablet, 800 MG PO Q8, #30 TAB 0 Refills Prov:JESSIKA ELLIOTT MD 03/02/17 Metformin* (Glucophage* XR) 500 Mg Tab.sr.24h, 500 MG PO BID WITH MEALS, #120 6 Refills Prov:JESSIKA ELLIOTT MD 03/02/17 Reported Medications Multivit/Min/Fol Ac/Iron/Pren* ( S*) 1 Tab Tab, 1 TAB PO DAILY, TAB 02/28/17 Allergies Allergies: Coded Allergies: No Known Drug Allergy (Verified Allergy, Unknown, 06/08/17) PMhx/Soc History of Surgery: Yes (appendectomy (2015)) Anesthesia Reaction: No Hx Neurological Disorder: No Hx Respiratory Disorders: No Hx Cardiac Disorders: No Hx Psychiatric Problems: No Hx Miscellaneous Medical Probl: No Hx Alcohol Use: No Hx Substance Use: No Hx Tobacco Use: No Physical Exam Vitals Vital Signs Date Time Temp Pulse Resp B/P Pulse Ox O2 Delivery O2 Flow Rate FiO2 06/10/17 02:54 99.1 96 15 113/58 97 Room Air 06/10/17 01:55 98.0 108 18 116/57 06/09/17 21:58 102.7 128 20 113/70 99 Physical Exam CONSTITUTIONAL: Well-appearing; well-nourished; in no apparent distress. HEAD: Normocephalic; atraumatic. EYES: Conjunctiva clear, sclera non-icteric, EOM intact. PERRL Ears: Hearing intact. EACs clear, TMs non-bulging, non-inflamed, translucent & mobile, ossicles normal appearance, No obstructions, no erythema, no discharges Nose: No obstructions. No polyps. No external lesions. Mucosa non-inflamed. No external lesions, septum and turbinates normal. No rhinorrhea. No discharges. Frontal sinus is non-tender to palpation. Maxillary sinus is non-tender to palpation. MOUTH: Moist mucous membranes, no lesion, no obstructions, no vesicles, no thrush, patent airway Throat: Uvula in midline. Right tonsil is +1 with no erythema, no exudate. Left tonsil is +1 with no erythema, no exudate. Tolerating secretions well. Good gag reflex. Patent airway. Neck: Supple, without lesions, bruits, or adenopathy. No mass. Thyroid non- enlarged and non-tender to palpation. CHEST: Symmetrical chest. Respirations even and not labored. No retractions noted. CARDIOVASCULAR: Normal S1, S2. RRR. No murmurs, gallops. RESPIRATORY: Normal chest excursion with respiration; breath sounds clear and equal bilaterally; no wheezes, rhonchi, or rales. Breathing even and unlabored. Speaking in clear, full, and complete sentences w/ ease. ABDOMEN: Normal bowel sounds normal. Soft, round, non-distended, non-guarding, no rebound, no organomegaly, no masses, no pulsating abdominal mass. Has diffuse abdominal tenderness. No hernia. No peritoneal signs. site is healed. No dehiscence. No bleeding. No discharge. Patient developed abdominal pain after jumping twice. : Has mild CVA tenderness bilaterally. BACK: Symmetrical shoulder. Spine is midline without deformity, tenderness. No evidence of trauma or deformity. PELVIS: Stable pelvis. No evidence of trauma or deformity. MUSCULOSKELETAL: Normal gait and station. No misalignment, asymmetry, crepitation, defects, tenderness, masses, effusions, decreased range of motion, instability, atrophy or abnormal strength or tone in the head, neck, spine, ribs , pelvis or extremities. No calf tenderness. NEUROVASCULAR: Distal pulses are present. Pedal pulse are present, equal, and normal. Capillary refills are < 2 seconds. NEUROLOGIC: Alert and oriented x4. Speaks full and clear sentences. Cranial Nerves II-XII normal. Sensation to pain, touch, and proprioception normal. Grossly unremarkable. No neurologic deficits. Romberg test is negative. PSYCHOLOGICAL: The patients mood and manner are appropriate. No hallucinations , delusions. Not SI. Not HI. Has the capacity to decide for self SKIN: Normal for age and ethnicity; warm; dry; good turgor; no apparent lesions or exudates. No rashes, hives, discoloration. Intact. Result Diagram: 06/09/17229906/09/172299 Results 24 hrs Laboratory Tests Test 06/09/17 22:41 06/09/17 23:00 Urine Color RED Urine Clarity CLOUDY Urine pH 6.0 Urine Specific [place] 1.016 Urine Ketones NEGATIVEmg/dL Urine Nitrite NEGATIVEmg/dL Urine Bilirubin NEGATIVEmg/dL Urine Urobilinogen NEGATIVEmg/dL Urine Leukocyte Esterase 1+Kyler/ul Urine Microscopic RBC > 182/HPF Urine Microscopic WBC 126/HPF Urine Squamous Epithelial Cells MANY/HPF Urine Bacteria FEW/HPF Urine Mucus FEW/HPF Urine Hemoglobin 3+mg/dL Urine Glucose NEGATIVEmg/dL Urine Total Protein 2+mg/dl White Blood Count 5.910^3/ul Red Blood Count 4.2710^6/ul Hemoglobin 12.0g/dl Hematocrit 35.6% Mean Corpuscular Volume 83.4fl Mean Corpuscular Hemoglobin 28.1pg Mean Corpuscular Hemoglobin Concent 33.7g/dl Red Cell Distribution Width 14.6% Platelet Count 08175^3/UL Mean Platelet Volume 10.4fl Neutrophils % 63.4% Lymphocytes % 22.1% Monocytes % 14.0% Eosinophils % 0.0% Basophils % 0.3% Nucleated Red Blood Cells % 0.0/100WBC Neutrophils # (Manual) 410^3/ul Lymphocytes # 1.310^3/ul Monocytes # 0.810^3/ul Eosinophils # 0.010^3/ul Basophils # 0.010^3/ul Nucleated Red Blood Cells # 0.010^3/ul Sodium Level 137mmol/L Potassium Level 2.9mmol/L Chloride Level 104mmol/L Carbon Dioxide Level 22mmol/L Anion Gap 14 Blood Urea Nitrogen 6mg/dl Creatinine 0.53mg/dl Glucose Level 127mg/dl Lactic Acid Level 0.9mmol/L Calcium Level 8.4mg/dl Total Bilirubin 0.4mg/dl Direct Bilirubin 0.00mg/dl Indirect Bilirubin 0.4mg/dl Aspartate Amino Transf (AST/SGOT) 26IU/L Alanine Aminotransferase (ALT/SGPT) 38IU/L Alkaline Phosphatase 63IU/L Total Protein 7.1g/dl Albumin 3.9g/dl Globulin 3.20g/dl Albumin/Globulin Ratio 1.21 Amylase Level 69U/L Lipase 41U/L Serum HCG, Qualitative NEGATIVE Current Medications Medications (Trade) Dose Ordered Sig/Josephine Route PRN Reason Start Time Stop Time Status Last Admin Dose Admin Sodium Chloride (NS) 1,000 ml @ 1,000 mls/hr Q1H STAT IV 06/09/17 22:31 06/09/17 22:36 DC Morphine Sulfate (morphine) 4 mg ONCE STAT IV 06/09/17 22:31 06/09/17 22:35 DC Ondansetron HCl 4 mg 4 mg ONCE STAT IV 06/09/17 22:31 06/09/17 22:35 DC Ceftriaxone Sodium 50 ml @ 100 mls/hr ONCE STAT IVPB 06/09/17 22:31 06/09/17 23:00 DC 06/09/17 23:17 Sodium Chloride (NS) 1,720 ml @ 1,720 mls/hr BOLUS X1 ONCE IV 06/09/17 23:00 06/09/17 23:59 DC 06/09/17 23:17 Acetaminophen (Tylenol Tab) 1,000 mg ONCE STAT PO 06/09/17 23:12 06/09/17 23:13 DC 06/09/17 23:17 IV Flush 10 ml 10 ml STK-MED ONCE .ROUTE 06/10/17 00:19 06/10/17 00:20 DC 06/10/17 00:25 Sodium Chloride (NS) 100 ml @ ud STK-MED ONCE .ROUTE 06/10/17 00:19 06/10/17 00:20 DC 06/10/17 00:25 Potassium Chloride (Klor-Con 20) 40 meq ONCE STAT PO 06/10/17 00:19 06/10/17 00:21 DC 06/10/17 00:55 Iohexol 150 ml 150 ml STK-MED ONCE .ROUTE 06/10/17 00:19 06/10/17 00:20 DC 06/10/17 00:25 Piperacillin Sod/ Tazobactam Sod (Zosyn 3.375gm/ 100 ml (Pmx)) 100 ml @ 200 mls/hr ONCE ONCE IVPB 06/10/17 02:00 06/10/17 02:08 DC 06/10/17 02:06 Procedures/MDM Examination: Please see physical examination. Disease process, medical treatment was explained to the patient and family member. They verbalized understanding and agreed with the diagnostic tests, medical treatment, and follow-up care. Radiology: CT of the abdomen and pelvis with IV contrast. Impression: Reviewed. Blood works: Reviewed. Hypokalemia. Urinalysis: Reviewed. Treatment: IV insertion. Normal saline at 31 cc/kg. Rocephin. Morphine. Zofran. Re-evaluation: Denies headache, dizziness, blurry vision, neck pain, shoulder pain, chest pain, back pain, abdominal pain, nausea, vomiting. No episode of emesis in the emergency department. Alert and oriented 4. Speaks full and clear sentences. Respirations even and unlabored. Lung sounds clear to auscultation. Active bowel sounds. There is no right upper/right lower/ epigastric/left upper/left lower abdominal tenderness and light and deep palpation. Negative on Rovsings sign. Negative [place] Bass sign. Able to jump 5 times without developing right-sided abdominal pain. No peritoneal signs. Ambulatory with steady gait. No neurovascular deficits. No neurological deficits. Stated that she feels much better at this time. Consultation: Case discussed with supervising emergency room physician, Dr. Rustam Cueva, who also examined the patient and decided that we discharge her and to follow-up with her PCP. Differential diagnosis: Sepsis versus nephrolithiasis versus cholecystitis versus pancreatitis versus diverticulitis versus diverticulosis Medical decision makin-year-old female presents emergency department for pelvic pain, diarrhea, fever. Stated that she was here last Tuesday and was discharged with a final diagnosis of UTI. Complaints of abdominal pain that started last night. Had a 3 months ago. Patient's complaint, patient 's history about her complaint, my physical findings, diagnostic test results, my reevaluation are consistent with my final diagnosis of colitis, hypokalemia. Medications prescribed are the following: Augmentin. Tylenol. Patient and family member are made aware of the side effects and adverse reactions of the medications prescribed. Instructed on when to seek emergent and medical attention in case allergic/anaphylactic reactions or severe side effects and or adverse reactions to medications. Patient and family member verbalized understanding. Patient instructed Instructed to follow-up with his PCP in 24-48 hours. Instructed to Call 911 for chest pain, shortness of breath. Advised to come back here in ED as soon as possible for severity of symptoms which includes but not limited to: any new symptoms; shortness of breath/difficulty of breathing; cardiovascular changes; severe gastrointestinal symptoms; signs and symptoms of bleeding and or infection; signs of compartment syndrome/neurovascular changes; neurological changes/deficits. Patient and family member verbalized understanding. Upon discharge, patient is alert and oriented x 4, speaks full and clear sentences, denies pain, has no neurological deficits, has no neurovascular deficits, difficulty of breathing. Breathing even and unlabored. Lung sounds are clear to auscultation. Not in distress. Appears comfortable. Ambulatory with steady gait. Appears satisfied with care provided here in ED. Departure Diagnosis: Primary Impression: Acute colitis Condition: Good Additional Instructions: Instructed to follow-up with his PCP in 24-48 hours. Instructed to Call 911 for chest pain, shortness of breath. Advised to come back here in ED as soon as possible for severity of symptoms which includes but not limited to: any new symptoms; shortness of breath/difficulty of breathing; cardiovascular changes; severe gastrointestinal symptoms; signs and symptoms of bleeding and or infection; signs of compartment syndrome/neurovascular changes; neurological changes/deficits. Patient and family member verbalized understanding. RYAN ALLEN Jun 09, 2017 22:29
[2017-06-09] MEDS ORDERED: CEFTRIAXONE 1 GM/50 ML (PMX) 50 ML IVPB STA (22:31)
[2017-06-09] MEDS ORDERED: SOD CHLORIDE 0.9% 1,000 ML IV STA (22:31)
[2017-06-09] MEDS ORDERED: ONDANSETRON 4 MG INJ IV STA (22:31)
[2017-06-09] MEDS ORDERED: morphine 4 MG/ML VIAL IV STA (22:31)
[2017-06-09] MEDS ORDERED: SOD CHLORIDE 0.9% IV ONE (23:00)
[2017-06-09 23:08] LABS: ADD UMIC YES; UR ASCORBIC ACID NEGATIVE (NEGATIVE); UR BACTERIA FEW /HPF (NONE SEEN); UR BILIRUBIN (Dip) NEGATIVE (NEGATIVE); UR BLOOD (Dip) 3+ mg/dL (NEGATIVE); UR CLARITY CLOUDY (CLEAR); UR COLOR RED (YELLOW); UR GLUCOSE (Dip) NEGATIVE (NEGATIVE); UR KETONES (Dip) NEGATIVE (NEGATIVE); UR LEUKOCYTE ESTERASE (Dip) 1+ Leu/ul (NEGATIVE); UR MUCUS FEW /HPF (NONE SEEN); UR NITRITE (Dip) NEGATIVE (NEGATIVE); UR RBC > 182 /HPF (0-5); UR SPECIFIC GRAVITY (Dip) 1.016 (1.003-1.030); UR SQUAMOUS EPITHELIAL CELL MANY /HPF (FEW); UR TOTAL PROTEIN (Dip) 2+ mg/dl (NEGATIVE); UR UROBILINOGEN (Dip) NEGATIVE (NEGATIVE)
[2017-06-09] MEDS ORDERED: ACETAMINOPHEN 500 MG TAB PO STA (23:12)
[2017-06-09 23:36] LABS: BASOPHILS % 0.3 % (0.0-2.0); HEMATOCRIT 35.6 % (37.0-47.0); LYMPHOCYTES # 1.3 10^3/ul (0.8-2.9); LYMPHOCYTES % 22.1 % (15.0-51.0); MEAN CORPUSCULAR HEMOGLOBIN 28.1 pg (29.0-33.0); MEAN CORPUSCULAR HGB CONC 33.7 g/dl (32.0-37.0); MEAN CORPUSCULAR VOLUME 83.4 fl (82.0-101.0); MEAN PLATELET VOLUME 10.4 fl (7.4-10.4); MONOCYTE # 0.8 10^3/ul (0.3-0.9); NEUTROPHILS % 63.4 % (39.0-77.0); PLATELET COUNT 199 10^3/UL (140-415); RED BLOOD COUNT 4.27 10^6/ul (4.20-5.40); RED CELL DISTRIBUTION WIDTH 14.6 % (11.5-14.5); WHITE BLOOD COUNT 5.9 10^3/ul (4.8-10.8)
[2017-06-09 23:42] LABS: POSITIVE DIFF @See below
[2017-06-10] LABS: ALBUMIN 3.9 g/dl (3.3-4.9); ALBUMIN/GLOBULIN RATIO 1.21; BILIRUBIN,INDIRECT 0.4 mg/dl (0-1.1); BILIRUBIN,TOTAL 0.4 mg/dl (0.2-1.3); CALCIUM 8.4 mg/dl (8.4-10.2); CREATININE 0.53 mg/dl (0.44-1.00); TOTAL PROTEIN 7.1 g/dl (6.1-8.1)
[2017-06-10 00:02] LABS: POTASSIUM 2.9 mmol/L (3.5-5.1)
--- NOTE | 2017-06-10 00:11 | RADRPT ---
PROCEDURE: XR Chest. CLINICAL INDICATION: Chest pain. Abdominal pain TECHNIQUE: PA and lateral views of the chest were obtained. COMPARISON: None available FINDINGS: The trachea central bronchi are patent. The cardiomediastinal silhouette is within normal limits. The lungs are clear. No pleural effusion or pneumothorax is identified. The visualized osseous str uctures are intact. No evidence of free air below the diaphragm. RPTAT:HJJR IMPRESSION: Unremarkable two-view chest x-ray. Physician Dom Date Time Electronically viewed and signed by Physician Dom on 06/10/2017 00:10 JR/
[2017-06-10] MEDS ORDERED: IOHEXOL 300MG/ML 150 ML BTL ONE (00:19)
[2017-06-10] MEDS ORDERED: SOD CHLORIDE 0.9% 100 ML ONE (00:19)
[2017-06-10] MEDS ORDERED: POTASSIUM CHLORIDE (SR) 20 MEQ TAB PO STA (00:19)
--- NOTE | 2017-06-10 00:37 | RADRPT ---
PROCEDURE: CT abdomen and pelvis with intravenous contrast. CLINICAL INDICATION: Pain. TECHNIQUE: CT of the abdomen/pelvis was performed utilizing axial images with reconstructions in s agittal and coronal planes after uneventful administration of 90 cc Omnipaque 300. The administered radiation dose is CTDI 7.3 mGy, DLP 392 mGy-cm. COMPARISON: No pertinent prior examinations were submitted for comparison. FINDINGS: Visualized Chest: The visualized lung bases are clear. Abdomen: The liver, spleen, pancreas, gallbladder,and adrenal glands are unremarkable. The kidneys are without hydronephrosis. No definite urinary calculi are seen. There is no evidence of bowel obstruction. Prior appendectomy is noted. No intra-abdominal free air is seen. There is thickening of the colon extending from the proximal to mid transverse colon thro ugh the mid descending colon. Some minimal surrounding fat infiltrative changes are present. There is no evidence of intra-abdominal adenopathy or free fluid. Pelvis: There is no evidence of pelvic adenopathy. The uterus and ovaries are without enlargement. The uri nary bladder is unremarkable. There is a small amount of pelvic free fluid. The uterus likely as a septate or bicornuate configuration. Some minimal fatty infiltrative changes are seen within the pre vesical space, likely due to a somewhat recent low anterior abdominal resection. No focal fluid nazanin ections are seen within the pelvis. Osseous structures: Unremarkable. IMPRESSION: Long segment thickening of the transverse and left colon compatible with colitis. 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 RPTAT: HIKT .Donovan Nguyen MD, Date Time Electronically viewed and signed by .Donovan Nguyen MD, on 06/10/2017 00:37 .T/
[2017-06-10] MEDS ORDERED: PIPER-TAZO 3.375 GM IV (PMX) 100 ML IVPB ONE (02:00)
[2017-06-10] MEDS ORDERED: AMOX1TAB10 PO (02:08)
[2017-06-10] MEDS ORDERED: ACET500C5 PO (02:09)
[2017-06-10 02:54] VITALS: BP 113/58; PULSE 96; RESP 15; TEMP 99.1
--- NOTE | 2017-06-10 04:21 | QN ---
Documentation Comment The patient was initially seen by the PA in ED 1 The patient is 31-year-old female, presenting with fever, diarrhea, minimal abdominal pain for the last 3 days. She denies cough, neck pain, chest pain, nausea, vomiting, dysuria. She does not smoke or drink Past medical history: None Past surgical history: Appendectomy, Const: No acute distress. Head: Atraumatic. Eyes: Normal Conjunctiva. ENT: Normal External Ears, Nose and Mouth. Neck: Full range of motion. No meningismus. Resp: Clear to auscultation bilaterally. Cardio: Regular rate and rhythm. Abd: Soft, non distended, normal bowel sounds, non tender. No rigidity, rebound, CVA tenderness Skin: No petechiae or rashes. Back: No midline or flank tenderness. Ext: No cyanosis, or edema. Neur: Awake and alert. No focal deficit Psych: Normal Mood and Affect. [place] [address] Radiology Main Line: [phone] DIAGNOSTIC IMAGING REPORT Patient: ENRIQUE RUBIN : 1985 Age: 31 Sex: F MR #: [id number] DOS: 06/09/17 2236 Ordering MD: RYAN ALLEN NP Location: [facility] Room/Bed: PROCEDURE: XR Chest. CLINICAL INDICATION: Chest pain. Abdominal pain TECHNIQUE: PA and lateral views of the chest were obtained. COMPARISON: None available FINDINGS: The trachea central bronchi are patent. The cardiomediastinal silhouette is within normal limits. The lungs are clear. No pleural effusion or pneumothorax is identified. The visualized osseous structures are intact. No evidence of free air below the diaphragm. RPTAT:HJJR IMPRESSION: Unremarkable two-view chest x-ray. Physician Dom Date Time Electronically viewed and signed by Physician Dom on 06/10/2017 00:10 JR/ CC: RYAN ALLEN [facility] [address] [place] [address] Radiology Main Line: [phone] DIAGNOSTIC IMAGING REPORT Patient: ENRIQUE RUBIN : 1985 Age: 31 Sex: F MR #: [id number] DOS: 06/09/17 2231 Ordering MD: RYAN ALLEN NP Location: [facility] Room/Bed: PROCEDURE: CT abdomen and pelvis with intravenous contrast. CLINICAL INDICATION: Pain. TECHNIQUE: CT of the abdomen/pelvis was performed utilizing axial images with reconstructions in sagittal and coronal planes after uneventful administration of 90 cc Omnipaque 300. The administered radiation dose is CTDI 7.3 mGy, DLP 392 mGy-cm. COMPARISON: No pertinent prior examinations were submitted for comparison. FINDINGS: Visualized Chest: The visualized lung bases are clear. Abdomen: The liver, spleen, pancreas, gallbladder,and adrenal glands are unremarkable. The kidneys are without hydronephrosis. No definite urinary calculi are seen. There is no evidence of bowel obstruction. Prior appendectomy is noted. No intra-abdominal free air is seen. There is thickening of the colon extending from the proximal to mid transverse colon through the mid descending colon. Some minimal surrounding fat infiltrative changes are present. There is no evidence of intra-abdominal adenopathy or free fluid. Pelvis: There is no evidence of pelvic adenopathy. The uterus and ovaries are without enlargement. The urinary bladder is unremarkable. There is a small amount of pelvic free fluid. The uterus likely as a septate or bicornuate configuration. Some minimal fatty infiltrative changes are seen within the prevesical space, likely due to a somewhat recent low anterior abdominal resection. No focal fluid collections are seen within the pelvis. Osseous structures: Unremarkable. IMPRESSION: Long segment thickening of the transverse and left colon compatible with colitis. 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 RPTAT: HIKT .Donovan Nguyen MD, Date Time Electronically viewed and signed by .Donovan Nguyen MD, on 06/10/2017 00:37 .T/ CC: RYAN ALLEN MEDICAL MAKING DECISION: The patient is a 31-year-old female, presenting with acute mild colitis, acute hypokalemia, contaminated urine specimen. She was treated with Rocephin IV, potassium chloride 40 mg p.o., 1 L normal saline, morphine 4 mg IV for pain, Zofran 4 IV for nausea with good response. She is stable for outpatient follow-up The differential diagnoses considered include but are not limited to cholelithiasis, cholecystitis, cystitis, pancreatitis, hepatitis, gastritis, peptic ulcer disease, gastric ulcer, appendicitis, diverticulitis, cholangitis, choledocholithiasis, partial small bowel obstruction. Diabetic impression #1 Acute mild colitis #2 Acute hypokalemia Disposition: I discussed the findings with the patient. I advised the patient to follow-up with the primary physician in about 1-2 days, sooner if needed and return if any concern. She will be discharged with Augmentin p.o. JEN VELEZ MD Jun 10, 2017 04:21
== END 2017-06-10 02:56 | disposition home or self-care (01) ==
LOC: FTE 21:52
DX: K52.9 Noninfective gastroenteritis and colitis, unspecified (principal); Z79.84 Long term (current) use of oral hypoglycemic drugs
CPT/HCPCS: 36415; 71020; 74177; 80053; 81001; 82150; 83605; 83690; 84703; 85025; 87040; 87086; 96374; 96375; J0696; J2543; J7030; Q9967; Z7502; Z7610; J2270; J2405

== ENCOUNTER 2017-09-11 15:28 | Emergency (ER) | payer MEDICAID ==
[~2017-09-11] VITALS: Ht 144.8 cm; Wt 54.3 kg
[~2017-09-11 15:28] MED LIST changes: +ACET500C5 PO; -AMO500 PO; +AMOX1TAB10 PO; -CHINESE HERBS; -ONDA-43 PO; -PREN1TAB49 PO; -[UNRECOGNIZED DRUG - REMARK]
[2017-09-11 15:32] VITALS: Ht 144.8 cm; Wt 54.3 kg
[2017-09-11] MEDS ORDERED: ACETAMINOPHEN 500 MG TAB PO STA (16:42)
[2017-09-11] MEDS ORDERED: RANITIDINE 150 MG TAB PO ONE (17:00)
--- NOTE | 2017-09-11 17:04 | ERD ---
ER Documentation Chief Complaint Chief Complaint EPIGASTRIC PAIN, DIARRHEA AND NAUSEA X 2 DAYS HPI 32y/o female patient with no significant medical history, presents to the emergency department with family c/o gradual onset of epigastric pain, intermittent, that started 2 days ago. The pain is sharp burning, rated 7/10, without radiation. The symptoms are associated with mild nausea and diarrhea. Aggravating factors: Fatty food. Alleviating factors: Unknown. Denies fever, chills, N/V/D. No history of previous episodes. Treatment attempted: None. Previous evaluation: None. ROS SYSTEMIC symptoms: no fever, chills, no night sweats, no weight loss EYE symptoms: No blurred vision, no eye discharge OTOLARYNGEAL symptoms: No hearing loss. No ear pain, no sore throat CARDIOVASCULAR symptoms: No chest pain or discomfort, no palpitations. PULMONARY symptoms: No dyspnea, no cough, no wheezing. GASTROINTESTINAL symptoms: No abdominal pain, no nausea, no vomiting, no diarrhea MUSCULOSKELETAL symptoms: No arthralgias, no muscle aches. NEUROLOGY symptoms: No confusion, no syncope, no numbness or tingling. SKIN no rashes Medications Home Meds Active Scripts Cephalexin* (Keflex*) 500 Mg Capsule, 500 MG PO QID for 5 Days, CAP Prov:SHAHRIAR GOMES MD 09/11/17 Acetaminophen* (Tylenol*) 325 Mg Tablet, 1 TAB PO Q6 Y for PAIN AND OR ELEVATED TEMP, #20 TAB Prov:SHAHRIAR GOMES MD 09/11/17 Ranitidine Hcl* (Zantac*) 150 Mg Tablet, 150 MG PO BID Y for EPIGASTRIC PAIN, # 30 TAB Prov:SHAHRIAR GOMES MD 09/11/17 Acetaminophen* (Tylophen*) 500 Mg Capsule, 1 CAP PO Q6H Y for PAIN AND OR ELEVATED TEMP, #20 CAP Prov:RYAN ALLEN 06/10/17 Amoxicillin/Potassium Clav (Amox-Clav 875-125 mg Tablet) 875-125 mg Tab, 1 TAB PO BID for 10 Days, #20 TAB Prov:RYAN ALLEN 06/10/17 Nitrofurantoin Monohyd Macrocr* (Macrobid*) 100 Mg Capsr, 100 MG PO HS for 5 Days, CAP Prov:INÉS TIJERINA DO 06/08/17 Loperamide Hcl* (Imodium*) 2 Mg Capsule, 2 MG PO BID Y for DIARRHEA, #10 CAP MAX 16 mg/day Prov:INÉS TIJERINA DO 06/08/17 Metoclopramide* (Reglan*) 10 Mg Tablet, 10 MG PO Q6 Y for NAUSEA AND/OR VOMITING , #10 TAB Prov:LILIA JANG PA-C 06/07/17 Cephalexin* (Keflex*) 500 Mg Capsule, 500 MG PO TID for 7 Days, CAP Prov:LILIA JANG PA-C 06/07/17 Ibuprofen* (Motrin*) 600 Mg Tab, 600 MG PO Q6, #30 TAB Prov:LILIA JANG PA-C 06/07/17 [Oxycodone/Acetamin (5/325)] 1 TAB TAB No Conflict Check, 2 TAB PO Q4H Y for PAIN LEVEL 6-10, #30 0 Refills Prov:JESSIKA ELLIOTT MD 03/02/17 Ibuprofen* (Ibuprofen*) 800 Mg Tablet, 800 MG PO Q8, #30 TAB 0 Refills Prov:JESSIKA ELLIOTT MD 03/02/17 Metformin* (Glucophage* XR) 500 Mg Tab.sr.24h, 500 MG PO BID WITH MEALS, #120 6 Refills Prov:JESSIKA ELLIOTT MD 03/02/17 Reported Medications Multivit/Min/Fol Ac/Iron/Pren* ( S*) 1 Tab Tab, 1 TAB PO DAILY, TAB 02/28/17 Allergies Allergies: Coded Allergies: No Known Drug Allergy (Verified Allergy, Unknown, 06/08/17) PMhx/Soc Medical and Surgical Hx: pt denies Medical Hx, pt denies Surgical Hx History of Surgery: Yes (appendectomy (2015)) Anesthesia Reaction: No Hx Neurological Disorder: No Hx Respiratory Disorders: No Hx Cardiac Disorders: No Hx Psychiatric Problems: No Hx Miscellaneous Medical Probl: No Hx Alcohol Use: No Hx Substance Use: No Hx Tobacco Use: No Physical Exam Vitals Vital Signs Date Time Temp Pulse Resp B/P Pulse Ox O2 Delivery O2 Flow Rate FiO2 09/11/17 15:32 98.2 90 18 127/75 98 Physical Exam Patient is in no acute distress, vital signs stable. Alert and fully oriented. EYES: PERRLA, EOMI, Sclera and conjunctiva appear normal. EARS: Canals clear, tympanic membranes WNL THROAT: Normal oropharynx. NECK: Supple, No lymphadenopathy. Full ROM without pain or tenderness. HEART: RRR, no rubs, murmurs, clicks or gallops. LUNGS: Clear to auscultation. ABDOMEN: Soft, tenderness to palpation in epigastric area without masses or hepatosplenomegaly. EXTREMITIES: No edema bilaterally. BACK: Full ROM, no deformity, normal back exam NEURO: Cranial nerves grossly intact, no motor or sensory deficit Result Diagram: 09/11/17 1658 09/11/17 1658 Results 24 hrs Laboratory Tests Test 09/11/17 16:58 White Blood Count 5.910^3/ul Red Blood Count 4.7510^6/ul Hemoglobin 13.9g/dl Hematocrit 42.3% Mean Corpuscular Volume 89.1fl Mean Corpuscular Hemoglobin 29.3pg Mean Corpuscular Hemoglobin Concent 32.9g/dl Red Cell Distribution Width 12.2% Platelet Count 49897^3/UL Mean Platelet Volume 9.9fl Neutrophils % 62.1% Lymphocytes % 26.2% Monocytes % 9.0% Eosinophils % 1.7% Basophils % 0.5% Nucleated Red Blood Cells % 0.0/100WBC Neutrophils # 3.710^3/ul Lymphocytes # 1.610^3/ul Monocytes # 0.510^3/ul Eosinophils # 0.110^3/ul Basophils # 0.010^3/ul Nucleated Red Blood Cells # 0.010^3/ul Urine Color YELLOW Urine Clarity CLOUDY Urine pH 5.0 Urine Specific [place] 1.019 Urine Ketones NEGATIVEmg/dL Urine Nitrite NEGATIVEmg/dL Urine Bilirubin NEGATIVEmg/dL Urine Urobilinogen NEGATIVEmg/dL Urine Leukocyte Esterase TRACELeu/ul Urine Microscopic RBC 33/HPF Urine Microscopic WBC 16/HPF Urine Squamous Epithelial Cells MODERATE/HPF Urine Mucus FEW/HPF Urine Hemoglobin 3+mg/dL Urine Glucose NEGATIVEmg/dL Urine Total Protein 1+mg/dl Urine Test NEGATIVE Sodium Level 143mmol/L Potassium Level 3.7mmol/L Chloride Level 105mmol/L Carbon Dioxide Level 29mmol/L Anion Gap 13 Blood Urea Nitrogen 12mg/dl Creatinine 0.56mg/dl Glucose Level 108mg/dl Calcium Level 9.1mg/dl Total Bilirubin 0.5mg/dl Direct Bilirubin 0.00mg/dl Indirect Bilirubin 0.5mg/dl Aspartate Amino Transf (AST/SGOT) 32IU/L Alanine Aminotransferase (ALT/SGPT) 43IU/L Alkaline Phosphatase 110IU/L Total Protein 7.7g/dl Albumin 4.2g/dl Globulin 3.50g/dl Albumin/Globulin Ratio 1.20 Lipase 87U/L Current Medications Medications (Trade) Dose Ordered Sig/Josephine Route PRN Reason Start Time Stop Time Status Last Admin Dose Admin Ranitidine HCl (Zantac) 300 mg ONCE ONCE PO 09/11/17 17:00 09/11/17 17:01 DC 09/11/17 17:09 Acetaminophen (Tylenol Tab) 500 mg ONCE STAT PO 09/11/17 16:42 09/11/17 16:47 DC 09/11/17 16:56 [place] [address] Radiology Main Line: [phone] DIAGNOSTIC IMAGING REPORT Patient: ENRIQUE RUBIN : 1985 Age: 32 Sex: F MR #: [id number] DOS: 09/11/17 1642 Ordering MD: SHAHRIAR GOMES MD Location: [facility] Room/Bed: PROCEDURE: US abdomen right upper quadrant CLINICAL INDICATION: Epigastric pain. TECHNIQUE: Cavanaugh scale and color Doppler ultrasound of the right upper quadrant of the abdomen was performed. COMPARISON: CT dated 06/10/2017 and ultrasound dated . FINDINGS: Pancreas: Visualized portions are unremarkable. Liver: Normal in size and echogenicity with no focal hepatic lesion. Hepatopedal flow in the main portal vein. Gallbladder: No cholelithiasis, gallbladder wall thickening, or pericholecystic fluid. Common bile duct: 3.5 mm in diameter. Right Kidney: 10.6 cm in length. No nephrolithiasis, hydronephrosis, or mass. Ascites: None. IMPRESSION: 1. Unremarkable examination. A source for the patient's symptoms is not identified. RPTAT: HLBP .Kwadwo Alonso MD, MD Date Time Electronically viewed and signed by .Kwadwo Alonso MD, MD on 09/11/2017 17:09 .P/ CC: SHAHRIAR GOMES MD Procedures/[facility] 32y/o female patient, previously healthy, presents to the ED c/o epigastric abdominal pain for 2 days. Vital signs stable, Physical exam unremarkable. Differential diagnosis include but not limited to: UTI, colitis, gastroenteritis , kidney stones, irritable bowel syndrome, inflammatory bowel syndrome, malabsorption syndrome, cholelithiasis, food intolerance, medication side effect , pancreatitis, diverticulitis, bowel obstruction. Pertinent Data: Labs: CBC: normal, CMP: normal kidney and liver function, normal electrolytes. Lipase: normal Radiology: Normal gallbladder ultrasound Physical examination and clinical presentation consistent most likely with gastritis. During the ED course the patient received treatment with ranitidine and acetaminophen presenting overall improvement of the symptoms. Results and clinical impression discussed with the patient who agrees with management. The patient is stable to be treated outpatient and will be discharged home with a Rx for acetaminophen, ranitidine and Keflex for acute cystitis Side effects of prescribed medications (headache, rash, nausea, vomiting, diarrhea) were reviewed. Side effects of prescribed opiates (drowsiness, habituation) were reviewed. Side effects of prescribed NSAID medication (GI distress, edema, bleeding, HTN) were reviewed. The patient was instructed to follow up with the primary care provider in the next 48h. If symptoms persist, worsen or new symptoms develop, then patient should return to the ED immediately. Instructions explained and given to patient in Nigerien with acknowledgment and demonstrated understanding. Disclaimer: Inadvertent spelling and grammatical errors are likely due to EHR/ dictation software use and do not reflect on the overall quality of patient care. Also, please note that the electronic time recorded on this note does not necessarily reflect the actual time of the patient encounter. Departure Diagnosis: Primary Impression: Epigastric abdominal pain Additional Impressions: Gastritis Cystitis Condition: Stable Additional Instructions: Thank you very much for allowing us to participate in your care. Your health and safety is our top priority at [facility]. Have prescriptions filled and follow precisely the directions on the label. Follow-up with primary care provider during the next 4 days and bring all the information and medications prescribed. If illness has not improved in 2 days, then make an appointment with primary care provider. If the provider is unavailable, return to the Emergency Department immediately. SHAHRIAR GOMES MD Sep 11, 2017 17:04
--- NOTE | 2017-09-11 17:09 | RADRPT ---
PROCEDURE: US abdomen right upper quadrant CLINICAL INDICATION: Epigastric pain. TECHNIQUE: Cavanaugh scale and color Doppler ultrasound of the right upper quadrant of the abdomen was p erformed. COMPARISON: CT dated 06/10/2017 and ultrasound dated . FINDINGS: Pancreas: Visualized portions are unremarkable. Liver: Normal in size and echogenicity with no focal hepatic lesion. Hepatopedal flow in the main po rtal vein. Gallbladder: No cholelithiasis, gallbladder wall thickening, or pericholecystic fluid. Common bile duct: 3.5 mm in diameter. Right Kidney: 10.6 cm in length. No nephrolithiasis, hydronephrosis, or mass. Ascites: None. IMPRESSION: 1. Unremarkable examination. A source for the patient's symptoms is not identified. RPTAT: HLBP .Kwadwo Alonso MD, Date Time Electronically viewed and signed by .Kwadwo Alonso MD, on 09/11/2017 17:09 .P/
[2017-09-11 17:10] LABS: BASOPHILS % 0.5 % (0.0-2.0); EOSINOPHILS # 0.1 10^3/ul (0.0-0.5); EOSINOPHILS % 1.7 % (0.0-7.0); HEMATOCRIT 42.3 % (37.0-47.0); HEMOGLOBIN 13.9 g/dl (12.0-16.0); LYMPHOCYTES # 1.6 10^3/ul (0.8-2.9); LYMPHOCYTES % 26.2 % (15.0-51.0); MEAN CORPUSCULAR HEMOGLOBIN 29.3 pg (29.0-33.0); MEAN CORPUSCULAR HGB CONC 32.9 g/dl (32.0-37.0); MEAN CORPUSCULAR VOLUME 89.1 fl (82.0-101.0); MEAN PLATELET VOLUME 9.9 fl (7.4-10.4); MONOCYTE # 0.5 10^3/ul (0.3-0.9); NEUTROPHIL # 3.7 10^3/ul (1.6-7.5); NEUTROPHILS % 62.1 % (39.0-77.0); PLATELET COUNT 239 10^3/UL (140-415); RED BLOOD COUNT 4.75 10^6/ul (4.20-5.40); RED CELL DISTRIBUTION WIDTH 12.2 % (11.5-14.5); WHITE BLOOD COUNT 5.9 10^3/ul (4.8-10.8)
[2017-09-11 17:17] LABS: ADD UMIC YES; UR ASCORBIC ACID NEGATIVE (NEGATIVE); UR BILIRUBIN (Dip) NEGATIVE (NEGATIVE); UR BLOOD (Dip) 3+ mg/dL (NEGATIVE); UR CLARITY CLOUDY (CLEAR); UR COLOR YELLOW (YELLOW); UR GLUCOSE (Dip) NEGATIVE (NEGATIVE); UR KETONES (Dip) NEGATIVE (NEGATIVE); UR LEUKOCYTE ESTERASE (Dip) TRACE Leu/ul (NEGATIVE); UR MUCUS FEW /HPF (NONE SEEN); UR NITRITE (Dip) NEGATIVE (NEGATIVE); UR RBC 33 /HPF (0-5); UR SPECIFIC GRAVITY (Dip) 1.019 (1.003-1.030); UR SQUAMOUS EPITHELIAL CELL MODERATE /HPF (FEW); UR TOTAL PROTEIN (Dip) 1+ mg/dl (NEGATIVE); UR UROBILINOGEN (Dip) NEGATIVE (NEGATIVE)
[2017-09-11 17:29] LABS: ALBUMIN 4.2 g/dl (3.3-4.9); ALBUMIN/GLOBULIN RATIO 1.2; BILIRUBIN,INDIRECT 0.5 mg/dl (0-1.1); BILIRUBIN,TOTAL 0.5 mg/dl (0.2-1.3); CALCIUM 9.1 mg/dl (8.4-10.2); CREATININE 0.56 mg/dl (0.44-1.00); POTASSIUM 3.7 mmol/L (3.5-5.1); TOTAL PROTEIN 7.7 g/dl (6.1-8.1)
[2017-09-11] MEDS ORDERED: RANI150T9 PO (17:56)
[2017-09-11] MEDS ORDERED: CEPH-443 PO (17:56)
[2017-09-11] MEDS ORDERED: ACET325T33 PO (17:56)
== END 2017-09-11 18:05 | disposition home or self-care (01) ==
LOC: FTE 15:28
DX: K29.70 Gastritis, unspecified, without bleeding (principal); N30.90 Cystitis, unspecified without hematuria; R10.2 Pelvic and perineal pain; Z79.84 Long term (current) use of oral hypoglycemic drugs
CPT/HCPCS: 76705; 80053; 81001; 83690; 84703; 85025; Z7610

== ENCOUNTER 2018-03-23 12:25 | Emergency (ER) | END 2018-03-23 13:15 | disposition home or self-care (01) ==

== ENCOUNTER 2018-06-13 08:22 | Emergency (ER) | END 2018-06-13 10:17 | disposition home or self-care (01) ==

== ENCOUNTER 2019-07-02 10:12 | Emergency (ER) | payer SELFPAY ==
[~2019-07-02] VITALS: Ht 157.5 cm; Wt 61.0 kg
[~2019-07-02 10:12] MED LIST changes: +ACET325T33 PO; +FAMO-96 PO; +IBUP-1544 PO; -IBUP800T25 PO; +ONDA4TAB14 PO; +PRED20TA PO; +RANI150T35 PO
[2019-07-02 10:24] VITALS: BP 127/79; PULSE 92; RESP 16; Ht 157.5 cm; Wt 61.0 kg
[2019-07-02] MEDS ORDERED: LIDOCAINE/MYLANTA 40 ML BTL PO ONE (12:00)
== END 2019-07-02 12:45 | disposition home or self-care (01) ==
LOC: FTE 10:12
DX: R11.2 Nausea with vomiting, unspecified (principal); R19.7 Diarrhea, unspecified; Z79.84 Long term (current) use of oral hypoglycemic drugs
CPT/HCPCS: 81001; 99283